=== PATIENT | female | born 1985 | race Caucasian/White ===

== ENCOUNTER 2020-11-13 10:21 | Emergency (ER) | payer MEDICAID, SELFPAY ==
[2020-11-13 10:50] VITALS: BP 132/97; PULSE 108; RESP 18; TEMP 37.6; O2SAT 98; BMI 38.0
--- NOTE | 2020-11-13 14:08 | CT_ITS ---
WS: [id number] CT scan of the abdomen and pelvis without Oral and IV contrast. Additional two-dimensional coronal an d sagittal reconstruction was performed. 11/13/2020 Clinical Data: L flank pain Comparison: None. DLP: 1606.[address] scans at [facility] use at least one of these dose optimization techniques: automated e xposure control; mA and/or kV adjustment per patient size (includes targeted exams where dose is matc hed to clinical indication); or iterative reconstruction. Findings: The lower lungs show no nodules, masses or effusions. There is a calcified lymph node adjacent to the descending thoracic aorta. There is a small hiatal hernia. The liver, spleen, adrenal glands and pancreas are normal. There are clips in the gallbladder fossa f rom cholecystectomy. The kidneys show a lateral medullary calcification. There is a proximal left ureteral pelvic junction calcification measuring 0.7 cm. Mild left hydronephrosis is present. The abdominal aorta is normal i n size. No appendicitis or diverticulitis is seen. The stomach shows surgical clips. The small bowel and colo n are not remarkable.. No abscess, adenopathy, ascites, mass, obstruction or free air is seen. There is a 4.5 cm low-density structure which may represent an adnexal cyst in the left pelvis. The bladder is unremarkable. No uterus is seen. No inguinal hernia is seen. The bones of the lower thorax, lumbar spine, pelvis, and hips are normal. CT/CT kidney stone [id number] Impression: 1. Obstructing 0.7 cm left UPJ stone. 2. Bilateral medullary renal calcifications. 3. Probable 4.5 cm cyst in the left pelvis.
--- NOTE | 2020-11-13 14:09 | W.ED.FEMALGU ---
HPI - Female Genitourinary General: Chief complaint: Urogenital-Female Stated complaint: kidney stone, flank pain Time Seen by Provider: 11/13/20 13:46 Source: patient Mode of arrival: ambulatory History of Present Illness: HPI Narrative: 35-year-old female presents to the ER today for left flank pain x2 weeks. Patient reports she was seen at [facility] in [place] and diagnosed with a kidney stone at that time. She was not told the size of it but she was given antibiotics for UTI. Patient reports she saw the walk-in at [place] 3 days ago who instructed her to come to the ER. She did come but left because of wait times. Patient reports pain is not improving. It is in the left flank and radiates into the left lower abdomen. Patient reports a history of multiple kidney stones including 2 rounds of lithotripsy for stones as large as 1.4 cm. Patient reports a family history of kidney disease. She reports passing some clots in her urine but denies any urinary symptoms otherwise at this time. She does report some chills that she noticed yesterday. Patient rates the pain a 9 out of 10 at this time. It is worse with movement and is spasmodic, seems to come and go at times. Patient has a history of a partial hysterectomy however both ovaries were left.Patient reports some nausea but denies any vomiting at this time. Patient denies headache, fever, chest pain, shortness of breath, diarrhea, constipation, change in bowel habits. MD elicited complaint: flank pain Onset (ago): week(s) (2) Location of symptoms: flank (left) Severity: severe (9/10) Female Urogenital Radiation: L Flank Severity scale (1-10): 9 Quality of pain: sharp Consistency: intermittent Associated symptoms: Reports fevers/chills and nausea; Deny abdominal pain or headache(s) Sexual activity: Yes Patient : No Possible : other (Patient has had a partial hysterectomy) Review of Systems Const: Reports: chills and change in appetite; Denies: fever(s), body aches or fatigue ENMT: Denies: throat pain, nasal discharge or nasal congestion Card: Denies: chest pain, palpitations or edema Resp: Denies: dyspnea or wheezing GI: Reports: nausea; Denies: abdominal pain, vomiting, diarrhea, constipation or change in bowel habits : Reports: flank pain (Left) and other (Reports passing some clots with urination); Denies: difficulty voiding, dysuria, urinary frequency, urinary urgency or urinary hesitancy Musc: Reports: back pain (Left low back radiating to the flank) Skin/Breast: Denies: rash Neuro: Denies: headache(s) Psych: Denies: anxiety or depression PFSH ED PFSH: Social History Smoking and tobacco status: never smoked Second hand smoke exposure: Yes Alcohol intake: never Female Reproductive History: Spontaneous abortions: No Physical Exam Const: COMMON NORMALS: patient oriented x3; apparent distress GENERAL APPEARANCE: cooperative NUTRITIONAL APPEARANCE: obese HENMT: COMMON NORMALS: normocephalic and Normal external nose present HEAD & SCALP: normocephalic NOSE: Normal external nose present MOUTH: Normal oral and palatal mucosa present THROAT: posterior oropharynx normal Neck/C-Spine: COMMON NORMALS: no JVD Lymph: LYMPHATIC: no lymphadenopathy noted Resp: COMMON NORMALS: normal respiratory effort, No retractions and clear to auscultation bilaterally EFFORT & INSPECTION: Yes able to speak in complete sentences AUSCULTATION: clear to auscultation bilaterally Cardio: COMMON NORMALS: no JVD, regular rate, regular rhythm and No murmurs present (Cardio) RATE: regular rate RHYTHM: regular rhythm GI: COMMON NORMALS: Normal to inspection, nondistended, normoactive bowel sounds present, Soft to palpation, non-tender and No hepatosplenomegaly present PALPATION: Yes Soft to palpation, Yes Tenderness to palpation present (GI) Details: LLQ and Yes No hepatosplenomegaly present : COMMON NORMALS: Yes no CVA tenderness BLADDER/KIDNEY EXAM: Yes no CVA tenderness, Yes CVA tenderness and Yes other (Left flank tenderness noted to palpation) Back/Pelvis: COMMON NORMALS: no CVA tenderness GENERAL BACK: Yes CVA tenderness THORACIC SPINE/UPPER BACK: Yes thoracic ROM normal LUMBAR SPINE/LOWER BACK: Yes lumbar ROM normal Extremity: COMMON NORMALS: normal to inspection and full ROM Neuro: COMMON NORMALS: patient oriented x3 Psych: COMMON NORMALS: mental status grossly normal, Normal thought process present and cooperative THOUGHT PROCESS: Normal thought process present Skin: COMMON NORMALS: no rashes or lesions noted and no wounds GENERAL SKIN EXAM: no rashes or lesions noted Course ED course: We will get a UA and CT renal protocol to determine size of stone. Vital Signs: Vital signs: Vital Signs Temperature 99.7 F H 11/13/20 10:50 Pulse Rate 108 H 11/13/20 10:50 Respiratory Rate 18 11/13/20 10:50 Blood Pressure 132/97 11/13/20 10:50 Pulse Oximetry 98 11/13/20 10:50 MDM - Female MDM Narrative: Medical decision making narrative: UA indicates a UTI given positive nitrates, leukocytes, and blood. This is likely the cause of patient's left flank and suprapubic pain. We will do a gram of Rocephin in the ER in addition to sending patient home on Cipro. Recommend follow-up with PCP in 1 week regarding UTI. Patient does have a stone noted in the ureter which is 7 mm. At this size it should pass however patient may have continued discomfort. Given recurrent stones I would suggest patient follow-up with urology as previously recommended. Patient will be given Toradol for stone pain. Also Zofran for any nausea associated with pain. Recommended patient force fluids to help pass the stones. Return to the ER with new or worsening symptoms. Patient verbalized understanding and is in agreement with this treatment plan. Lab Data: Attestation: I reviewed the patient's lab results. Lab results narrative: Patient has a UTI, positive nitrates blood and leukocytes. Labs: Lab Results 11/13/20 Range/Units 14:14 Urine Color [place] (Yellow) Urine Appearance Cloudy (CLEAR) Urine pH 6 (5-7) Ur Specific Gravit y 1.005 (1.005-1.030) Urine Protein 1+ H (Negative) Urine Glucose (UA) Norm (Normal) Urine Ketones Negative (Negative) Urine Blood 2+ H (Negative) Urine Nitrate Positive H (Negative) Urine Bilirubin 1+ H (Negative) Urine Urobilinogen 8 H (Negative) mg/dL Ur Leukocyte Cristel ase 2+ H (Negative) Urine RBC 0-4 H (0-2) /hpf Urine WBC Too numerous to c nt H (0-5) /hpf Ur Squamous Epith Cells 5-10 H (0-5) /hpf Ur Transition Epit h Cell 0-4 /hpf Amorphous Sediment Not Reportable Urine Bacteria 4+ H (NONE) /hpf Urine Mucus 1+ /hpf Imaging Data: CT Abd/Pel: Radiologist's impression: [facility] [address] [place] [address] CT Scan Report Signed Patient: Tania Navarrete Unit #: [id number] : 1985 Age/Sex: 35 / F ADM Date: 11/13/20 Loc: ER Room/Bed: Attending Dr: Ordering Provider/Ordering MD: Yudith Herndon Date of Service: 11/13/20 Procedure(s): CT kidney stone 52541 Accession Number(s): [id number] Report Number: [id number] WS: [id number] CT scan of the abdomen and pelvis without Oral and IV contrast. Additional two-dimensional coronal and sagittal reconstruction was performed. 11/13/2020 Clinical Data: L flank pain Comparison: None. DLP: 1606.[address] scans at [facility] use at least one of these dose optimization techniques: automated exposure control; mA and/or kV adjustment per patient size (includes targeted exams where dose is matched to clinical indication); or iterative reconstruction. Findings: The lower lungs show no nodules, masses or effusions. There is a calcified lymph node adjacent to the descending thoracic aorta. There is a small hiatal hernia. The liver, spleen, adrenal glands and pancreas are normal. There are clips in the gallbladder fossa from cholecystectomy. The kidneys show a lateral medullary calcification. There is a proximal left ureteral pelvic junction calcification measuring 0.7 cm. Mild left hydronephrosis is present. The abdominal aorta is normal in size. No appendicitis or diverticulitis is seen. The stomach shows surgical clips. The small bowel and colon are not remarkable.. No abscess, adenopathy, ascites, mass, obstruction or free air is seen. There is a 4.5 cm low-density structure which may represent an adnexal cyst in the left pelvis. The bladder is unremarkable. No uterus is seen. No inguinal hernia is seen. The bones of the lower thorax, lumbar spine, pelvis, and hips are normal. CT/CT kidney stone [id number] Impression: 1. Obstructing 0.7 cm left UPJ stone. 2. Bilateral medullary renal calcifications. 3. Probable 4.5 cm cyst in the left pelvis. Dictated By: Leatha Harrington MD Signed By: Leatha Harrington MD Signed Date/Time: 11/13/20 1606 DD/ 1557 Critical Care Time Critical Care Time: Critical Care Time: No Discharge Plan Discharge Patient Disposition: Home Clinical Impression: Urinary tract infection Qualifiers: Urinary tract infection type: acute cystitis Hematuria presence: with hematuria Qualified Code(s): N30.01 - Acute cystitis with hematuria Ovarian cyst Qualifiers: Laterality: left Qualified Code(s): N83.202 - Unspecified ovarian cyst, left side Urolithiasis Qualifiers: Urinary calculus location: ureter Qualified Code(s): N20.1 - Calculus of ureter Condition: Stable Prescriptions: New ciprofloxacin HCl 500 mg tablet 500 mg PO BID 7 Days Qty: 14 RF: 0 Zofran 4 mg tablet 4 mg PO Q8H PRN (Reason: nausea and vomiting) 4 Days RF: 0 ketorolac 10 mg tablet 10 mg PO Q8H PRN (Reason: pain) 3 Days RF: 0 Discharge Orders: Discharge ED (Routine); Ordered 11/13/20 Ordered By: Yudith Herndon Discharge Diet: Usual diet Discharge Activity: Resume usual activity Patient Instructions: Kidney Stones (ED), Urinary Tract Infection in Women (ED), Opioid Safety Activity Restrictions/Additional Instructions: Take Zofran and Toradol as prescribed. Take Cipro as prescribed. Increase fluid intake. Make a follow-up with urology to discuss recurrent kidney stones. Do not take any ibuprofen at home until finished with the Toradol. Follow-up with PCP in 1 week for continued urinary symptoms. Return to the ER with any new or worsening symptoms. Coding Level of Care Code ED Milled [employer] for [employer] Fwd Exam Comprehensive
[2020-11-13 14:42] LABS: Urine Color Amber (Yellow)
[2020-11-13 14:43] LABS: Add Urine Microscopic? YES; Bilirubin Urine 1+ (Negative); Blood Urine 2+ (Negative); Glucose Urine UA Norm (Normal); Ketones Urine Negative (Negative); Leukocyte Esterase Urine 2+ (Negative); Nitrate Urine Positive (Negative); Protein Urine 1+ (Negative); Specific Gravity, Urine 1.005 (1.005-1.030); Urine Appearance Cloudy (CLEAR); Urobilinogen Urine 8 mg/dL (Negative); pH Urine 6 (5-7)
[2020-11-13 14:44] LABS: Add Urine Culture? Yes; Bacteria Urine 4+ /hpf; Mucus Urine 1+ /hpf; RBC Urine 0-4 /hpf (0-2); Transitional Epi Cells Urine 0-4 /hpf; WBC Urine TOO NUMEROUS TO CNT /hpf (0-5)
[2020-11-13] MEDS: ketorolac 10 mg Tablet PO (14:49)
[2020-11-13] MEDS: ondansetron 4 MG Tablet PO (14:50)
[2020-11-13] MEDS: cefTRIAXone 1,000 MG in lidocaine 1% 2.1 ML 1 MG IM (16:28)
[2020-11-13 16:42] VITALS: BP 131/87; PULSE 91; RESP 14; O2SAT 99
== END 2020-11-13 16:42 | disposition home or self-care (01) ==
PROVIDERS: Emergency Provider Physician Assistant
DX: N30.01 Acute cystitis with hematuria (principal); N83.202 Unspecified ovarian cyst, left side; N20.1 Calculus of ureter; Z77.22 Contact with and (suspected) exposure to environmental tobacco smoke (acute) (chronic)
CPT/HCPCS: 74176; 81001; 87077; 87086; 87186; 96372; 99283; J0696; Q0162